=== PATIENT | male | born 1990 | race Caucasian/White ===

== ENCOUNTER 2020-11-29 15:20 | Emergency (ER) | payer MEDICAID ==
[~2020-11-29] VITALS: Ht 167.6 cm; Wt 54.5 kg
[2020-11-29] MEDS ORDERED: ketorolac tromethamine 15mg/ml inj. IM ONE (17:40)
[2020-11-29] MEDS ORDERED: AMOX-117 PO (17:46)
[2020-11-29 18:38] VITALS: BP 122/74
== END 2020-11-29 18:39 | disposition home or self-care (01) ==
LOC: ER 15:21
DX: K00.6 Disturbances in tooth eruption (principal); Z79.2 Long term (current) use of antibiotics
CPT/HCPCS: 96372; 99283; J1885

== ENCOUNTER 2023-10-31 10:18 | Emergency (ER) | payer MEDICAID ==
[~2023-10-31] VITALS: Ht 167.6 cm; Wt 58.0 kg
[2023-10-31 10:34] VITALS: BP 128/75; PULSE 114; RESP 16; TEMP 99.2; O2SAT 98
[2023-10-31 11:25] LABS: BILIRUBIN,URINE NEGATIVE (Neg); CLARITY,URINE CLOUDY (Clear); COLOR,URINE YELLOW (Yellow); GLUCOSE, URINE NEGATIVE (Neg); KETONES,URINE NEGATIVE (Neg); LEUKOCYTE ESTERASE ,URINE SMALL (Neg); NITRITES, URINE NEGATIVE (Neg); OCCULT BLOOD,URINE TRACE-INTACT (Neg); PROTEIN,URINE NEGATIVE (Neg)
[2023-10-31 11:28] LABS: UA COLLECTION TYPE CLN CATCH MIDSTREAM
[2023-10-31 11:42] LABS: BACTERIA,URINE 1+ /HPF (Neg); MUCUS STRANDS NONE SEEN /LPF (Neg); RBC,URINE 0-2 /HPF (0-2); SQUAMOUS EPITHELIAL CELL,UR NONE SEEN /LPF (FEW); WBC CLUMPS,URINE MANY /HPF (NEGATIVE); WBC,URINE TNTC /HPF (0-4)
[2023-10-31] MEDS ORDERED: DOXY-1 PO (12:43)
[2023-10-31] MEDS: azithromycin 250mg tablet PO ONE (12:57)
[2023-10-31] MEDS: CefTRIAXone 250MG IM Kit w/LIDOcaine IM ONE (12:57)
[2023-11-04 11:22] LABS: CHLAMYDIA TRACHOMATIS, NAA Negative (Negative)
== END 2023-10-31 13:07 | disposition home or self-care (01) ==
LOC: ER 10:18
DX: N34.2 Other urethritis (principal)
CPT/HCPCS: 36415; 81001; 87088; 87491; 87591; 96372; 99283; J0696